=== PATIENT | female | born 1965 | race Caucasian/White ===

== ENCOUNTER 2017-04-30 08:02 | Day surgery (SDC) | payer BC, OTHER ==
[2017-04-30] MEDS ORDERED: Lidocaine 1%/Sod Bicarbonate in NS 8.4% 1 ML Syringe IDERM PRN (08:03)
[2017-04-30] MEDS ORDERED: Sodium Chloride 0.9% 10 ML Syringe FLUSH PRN (08:03)
[2017-04-30] MEDS ORDERED: Propofol 200 MG/20 ML SDV ONE (08:06)
[2017-04-30] MEDS ORDERED: Ondansetron 4 MG/2 ML SDV ONE (08:06)
[2017-04-30] MEDS ORDERED: Midazolam 1 MG/ML 2 ML SDV ONE (08:06)
[2017-04-30] MEDS ORDERED: fentaNYL 250 MCG/5 ML SDV ONE ×2 (08:06→09:28)
[2017-04-30] MEDS ORDERED: Rocuronium 50 MG/5 ML Vial ONE (08:06)
[2017-04-30] MEDS ORDERED: Lactated Ringers 1,000 ML IV SCH (08:15)
--- NOTE | 2017-04-30 08:31 | PCM.PREANE ---
Preanesthetic Assessment - Anesthesia/Transfusion/Family Hx Anesthesia History: Prior Anesthesia Without Reaction Family History of Anesthesia Reaction: No Transfusion History: No Prior Transfusion(s) - Review of Systems General: No Symptoms Pulmonary: No Symptoms Cardiovascular: No Symptoms Gastrointestinal: Abdominal Pain Neurological: No Symptoms Other: Reports: None - Physical Assessment NPO Status Date: 04/29/17 NPO Status Time: 00:00 Pulse: 77 O2 Sat by Pulse Oximetry: 98 Respiratory Rate: 16 Blood Pressure: 132/86 Temperature: 36.6 C Height: 1.63 m Weight: 108.318 kg ASA Class: 2 Mental Status: Alert & Oriented x3 Dentition: Reports: Normal Dentition, Houstonia(s) Thyro-Mental Finger Breadths: 3 Mouth Opening Finger Breadths: 3 ROM/Head Extension: Full Lungs: Clear to Auscultation, Normal Respiratory Effort Cardiovascular: Regular Rate, Regular Rhythm, No Murmurs - Lab Values: on chart - Imaging/EKG Impressions: on chart - Allergies Allergies/Adverse Reactions: Allergies Allergy/AdvReac Type Severity Reaction Status Date / Time clarithromycin Allergy Other Verified 04/30/17 08:10 - Blood Blood Available: No Product(s) Available: None - Anesthesia Plan Pre-Op Medication Ordered: None - Acknowledgements Anesthesia Type Planned: General Anesthesia Pt an Appropriate Candidate for the Planned Anesthesia: Yes Alternatives and Risks of Anesthesia Discussed w Pt/Guardian: Yes Pt/Guardian Understands and Agrees with Anesthesia Plan: Yes PreAnesthesia Questionnaire - SUBSTANCE USE Smoking Status *Q: Never Smoker Tobacco Use Within Last Twelve Months: No Second Hand Smoke Exposure: No Days Per Week of Alcohol Use: 0 Number of Drinks Per Day: 0 Total Drinks Per Week: 0 Recreational Drug Use History: No - CURRENT (IN HOUSE) MEDS Current Meds: Current Medications Lactated Ringer's (Ringers, Lactated) 1,000 mls @ 125 mls/hr IV ASDIRECTED HERO Stop: 04/30/17 23:00 Lidocaine/Sodium Bicarbonate (Buffered Lidocaine 1% In Ns 8.4%) 0.25 ml IDERM ONETIME PRN PRN Reason: Prior to IV Start Stop: 04/30/17 18:00 Sodium Chloride (Saline Flush) 10 ml FLUSH ASDIRECTED PRN PRN Reason: Keep Vein Open Stop: 04/30/17 18:00 Discontinued Medications Fentanyl (Sublimaze) Confirm Administered Dose 250 mcg .ROUTE .STK-MED ONE Stop: 04/30/17 08:07 Midazolam HCl (Versed 1 Mg/Ml) Confirm Administered Dose 2 mg .ROUTE .STK-MED ONE Stop: 04/30/17 08:07 Ondansetron HCl (Zofran) Confirm Administered Dose 4 mg .ROUTE .STFire Suppression Specialists-MED ONE Stop: 04/30/17 08:07 Propofol (Diprivan 20 Ml) Confirm Administered Dose 200 mg .ROUTE .STK-MED ONE Stop: 04/30/17 08:07 Rocuronium Liberty (Zemuron) Confirm Administered Dose 50 mg .ROUTE .STK-MED ONE Stop: 04/30/17 08:07
[2017-04-30] MEDS: Bupivacaine 0.5% 30 ML SDV ONE ×2 (09:13→10:23)
[2017-04-30] MEDS ORDERED: Sodium Chloride 0.9% 50 ML SDV ONE (09:19)
[2017-04-30] MEDS: Iopamidol 612 MG/ML 50 ML SDV ONE ×2 (09:23→09:50)
[2017-04-30] MEDS: Sodium Chloride 0.9% 50 ML SDV ONE ×2 (09:24→09:50)
[2017-04-30] MEDS ORDERED: Labetalol 100 MG/20 ML MDV ONE (09:31)
--- NOTE | 2017-04-30 10:28 | PCM.OPNOTE ---
- General Post-Op/Procedure Note Date of Surgery/Procedure: 04/30/17 Operative Procedure(s): lap fany with ioc Pre Op Diagnosis: cholelithiasis Post-Op Diagnosis: Same Anesthesia Technique: General ET Tube Primary Surgeon: Bharat Cain EBL in mLs: 10 Complications: None Condition: Good
[2017-04-30] MEDS ORDERED: Lactated Ringers 1,000 ML ONE (10:30)
--- NOTE | 2017-04-30 10:35 | CR ---
Operative cholangiogram: Multiple fluoroscopic spot views utilizing C-arm device was obtained during operative cholangiogram study. Contrast is seen within duodenum. No filling defects seen within the CHD or CBD or visualized intrahepatic ducts to indicate retained stone. Impression: 1. Unremarkable operative cholangiogram exam. Diagnostic code #1
[2017-04-30] MEDS ORDERED: HYDROmorphone 0.5 MG/0.5 ML Syringe IVPUSH PRN (10:39)
[2017-04-30] MEDS ORDERED: fentaNYL 100 MCG/2 ML SDV IVPUSH PRN (10:39)
--- NOTE | 2017-04-30 10:41 | PCM.POSTAN ---
POST ANESTHESIA ASSESSMENT - MENTAL STATUS Mental Status: Alert, Oriented - VITAL SIGNS Pulse Rate: 71 SaO2: 93 Resp Rate: 15 Blood Pressure: 147/90 Temperature: 36.9 C - RESPIRATORY Respiratory Status: Respiratory Rate WNL, Airway Patent, O2 Saturation Stable, Supplemental Oxygen - CARDIOVASCULAR CV Status: Pulse Rate WNL, Blood Pressure Stable - GASTROINTESTINAL GI Status: No Symptoms - PAIN Pain Score: 0 - POST OP HYDRATION Hydration Status: Adequate & Stable - OBSERVATIONS Free Text/Narrative:: no anesthesia complications noted
[2017-04-30] MEDS ORDERED: Acetaminophen/HYDROcodone 325-5 MG Tab PO PRN (11:25)
--- NOTE | 2017-05-03 07:34 | OR ---
DATE OF OPERATION: 04/30/2017 SURGEON: Bharat Cain MD PREOPERATIVE DIAGNOSIS: 1. Cholelithiasis. 2. Chronic cholecystitis. POSTOPERATIVE DIAGNOSIS: 1. Cholelithiasis. 2. Chronic cholecystitis. OPERATION PERFORMED: 1. Laparoscopic cholecystectomy. 2. Intraoperative cholangiogram. FINDINGS: Adhesions over the fundus of the gallbladder. The cholangiogram was normal. There was just gallstone noted in the gallbladder. ESTIMATED BLOOD LOSS: About 10 mL. ANESTHESIA: General anesthetic. DESCRIPTION OF PROCEDURE: The patient was taken to the operating room and placed in the supine position, connected to the monitoring equipment, given general anesthetic, and intubated. SCDs were placed. Antibiotics were given, and the abdomen was prepped with chlorhexidine-alcohol and prepped and draped off in a sterile fashion. An incision was made just above the umbilicus and using a 5 mm Opti port, the abdominal cavity was entered and pneumoperitoneum was established. This was followed by 5 mm 0-degree camera, which showed adhesions around the fundus of the gallbladder and a fatty infiltrated gallbladder. The 10 mm trocar was placed in the epigastric position and 5 mm trocar placed in the right upper and right lateral quadrant. The adhesions were taken down around the gallbladder. Some of the adhesions were attached to the liver. The gallbladder fundus was then grasped and retracted in a cephalad position. The patient was placed in reverse Trendelenburg with leftward tilt. The adhesions were then taken off the Ana pouch and was retracted in a caudal position. Calot's triangle was dissected out showing cystic duct, Ana pouch junction, cystic plate, and cystic artery. Cystic artery was taken down between curved hemostats, cut and tied opening up Calot's triangle, and allowing a clip to be placed on the cystic duct-Ana pouch junction. Cystic duct was then opened, and a cholangiocatheter was inserted and secured with a clip, and a cholangiogram using contrast material diluted with equal parts of saline was then performed and was normal. The cholangiocatheter was removed and 2 clips were placed on the cystic duct and the cystic duct was cut. The gallbladder was then dissected from its attachments to the liver, placed in an Endobag, and removed from the abdominal cavity from the epigastric port and sent to pathology. The area was checked. There was some oozing from the gallbladder bed, and this was secured with a pledget of Surgicel. The area was irrigated. Excellent hemostasis was noted. This completed the intraabdominal portion of the procedure. Pneumoperitoneum and ports were removed, and the skin of each port closed with subdermal 4-0 Dexon suture. Steri-Strips and sterile dressing were placed. 0.5% Marcaine was infiltrated in the skin. The patient tolerated the procedure and was sent to the recovery room in a stable condition. MMODAL /[id number]
== END 2017-04-30 12:55 | disposition home or self-care (01) ==
LOC: JD.SDS 08:02
PROVIDERS: ATTEND Surgery
DX: K80.10 Calculus of gallbladder with chronic cholecystitis without obstruction (principal); I10 Essential (primary) hypertension; Z79.899 Other long term (current) drug therapy; Z88.1 Allergy status to other antibiotic agents
CPT/HCPCS: 47563; 74300; 88304; A9270; J1170; J2250; J2405; J3010; J7120; Q9967; 00790; J2704